=== PATIENT | male | born 1950 | race Caucasian/White ===

== ENCOUNTER 2016-07-14 12:14 | Emergency (ER) | payer OTHER ==
[2016-07-14 12:25] VITALS: BP 121/65; PULSE 72; TEMP 98; BMI 19.0
--- NOTE | 2016-07-14 13:33 | PDOC ---
History of Present Illness - General History Source: Patient, Old Records Exam Limitations: No Limitations <Benny Porterfany - Last Filed: 07/14/16 13:34> - General History Source: Patient, Old Records Exam Limitations: No Limitations - History of Present Illness Initial Comments: 07/14/16 13:39 The patient is a 65-year-old man, with a past medical history of schizophrenia ( not on any medications) and anxiety who presents to the emergency department via walk-in for further evaluation of a worsening right foot wound over the past week. No trauma/injury. Patient states that he noted increasing redness and swelling and last night he noted the foot had drained with noted yellow purulence. No pain. Patient admits placing garlic on the area, which he states made it worse. Patient expresses concern for possible infection, as he has experienced similar in the past (June of 2014; patient was noted to have an abscess in the same foot). No numbness, tingling and weakness sensations to the extremities. No recent fevers, chills, chest pain, cough, shortness of breath, abdominal pain , nausea, vomiting, diarrhea. Allergies: None Known Past Surgical History: Left hand orthopedic surgery (1976) Social History: No tobacco and recreational drug use. Occasional ETOH use. Primary Care Physician: Dr. Sallie Mcknight [phone] Psychiatrist: Dr. Joseph Covington [phone] <Rhonda Alanis - Last Filed: 07/14/16 13:42> - General Chief Complaint: Wound Infection Stated Complaint: RT FOOT INFECTION Time Seen by Provider: 07/14/16 13:11 Past History - Past Medical History Psychiatric Problems: Yes (SCIZOPHRENIA) Suicide Attempt (Hx): No - Surgical History Orthopedic Surgery: Yes (LEFT HAND 1976) - Psycho/Social/Smoking Cessation Hx Anxiety: Yes Suicidal Ideation: No Smoking Status: No Smoking History: Never smoked Have you smoked in the past 12 months: No Number of Cigarettes Smoked Daily: 0 Information on smoking cessation initiated: No Hx Alcohol Use: Yes ([facility]) Drug/Substance Use Hx: No Substance Use Type: None Hx Substance Use Treatment: No <Jaja Porter - Last Filed: 07/14/16 13:34> <Rhonda Alanis - Last Filed: 07/14/16 13:42> - Past Medical History Allergies/Adverse Reactions: Allergies Allergy/AdvReac Type Severity Reaction Status Date / Time No Known Allergies Allergy Verified 07/14/16 12:25 Home Medications: Ambulatory Orders No Home Medications 0 dose .ROUTE UTDICT 03/13/13 Cephalexin Monohydrate [Keflex -] 500 mg PO BID #14 capsule 06/29/14 Cephalexin [Keflex] 500 mg PO QID #30 capsule 07/14/16 Review of Systems - Review of Systems Able to Perform ROS?: Yes Comments:: 07/14/16 13:40 CONSTITUTIONAL: Absent: fever, no chills, no fatigue EYES: Absent: visual changes ENT: Absent: ear pain, no sore throat CARDIOVASCULAR: Absent: chest pain, no palpitations RESPIRATORY: Absent: cough, no SOB GI: Absent: abdominal pain, no nausea, no vomiting, no constipation, no diarrhea GENITOURINARY: Absent: dysuria, no frequency, no hematuria MUSCULOSKELETAL: Absent: back pain, no arthralgia, no myalgia SKIN: Present: Right foot wound. Absent: rash NEURO: Absent: headache <Rhonda Alanis - Last Filed: 07/14/16 13:42> *Physical Exam - Vital Signs Last Vital Signs Temp Pulse Resp BP Pulse Ox 98 F 72 18 121/65 100 07/14/16 12:20 07/14/16 12:20 07/14/16 12:20 07/14/16 12:20 07/14/16 12:20 <Jaja Porter - Last Filed: 07/14/16 13:34> - Vital Signs Last Vital Signs Temp Pulse Resp BP Pulse Ox 98 F 72 18 121/65 100 07/14/16 12:20 07/14/16 12:20 07/14/16 12:20 07/14/16 12:20 07/14/16 12:20 - Physical Exam Comments: 07/14/16 13:40 GENERAL: Well-appearing, well-nourished. No apparent distress. HEENT: Normocephalic, atraumatic. PERRL, EOM intact. CARDIOVASCULAR: Normal S1, S2. Regular rate and rhythm. PULMONARY: Clear to auscultation bilaterally. ABDOMEN: Soft, non-distended, non-tender. EXTREMITIES: Normal ROM in all four extremities. No gross deformities. SKIN: Over the arch of the Right foot, there is an intact lesion that is 3 centimeters by 3 centimeters that is unable to express purulence. There is also a 4 centimeter by 4 centimeter surrounding area of erythema that blanches and is very well circumscribed. Warm, dry. No rash NEUROLOGICAL: No focal neurological deficits. <Rhonda Alanis - Last Filed: 07/14/16 13:42> Medical Decision Making - Medical Decision Making 07/14/16 13:34 65-year-old male with no reported past medical history presents the emergency department with what appears to be a sebaceous cyst and a local skin reaction secondary to garlic placed on his foot; however cannot rule out an underlying cellulitis. Plan: 1. Bacitracin dressing placed 2. Will discharge on Keflex 3. Follow-up with podiatry 4. Return to the ED if symptoms persist, worsen, or new symptoms arise. <Jaja Porter - Last Filed: 07/14/16 13:34> *DC/Admit/Observation/Transfer - Discharge Dispostion Admit: No - Attestations Physician Attestion: 07/14/16 13:36 I, Dr. Jaja Porter, attest that the scribes documentation that appears above has been prepared under my direction and personally reviewed by me in its entirety. I confirmed that the note above accurately reflects all work, treatment, procedures, and medical decision-making performed by me. <Jaja Porter - Last Filed: 07/14/16 13:34> - Attestations Scribe Attestion: 07/14/16 13:40 Documentation prepared by Rhonda Alanis, acting as medical sales associate for Jaja Porter MD. <Rhonda Alanis - Last Filed: 07/14/16 13:42> Diagnosis at time of Disposition: Cellulitis of right foot - Discharge Dispostion Disposition: HOME Condition at time of disposition: Stable - Prescriptions Prescriptions: Cephalexin [Keflex] 500 mg PO QID #30 capsule - Referrals Referrals: Sallie Mcknight [Primary Care Provider] -
== END 2016-07-14 14:35 | disposition home or self-care (01) ==
LOC: JER 12:14
DX: L03.115 Cellulitis of right lower limb (principal); L72.3 Sebaceous cyst
CPT/HCPCS: 99283-25

== ENCOUNTER 2016-09-07 20:07 | Emergency (ER) | payer OTHER ==
[2016-09-07 20:19] VITALS: BMI 19.0
--- NOTE | 2016-09-07 22:13 | PDOC ---
History of Present Illness - General Chief Complaint: Pain Stated Complaint: FOOT PAIN/NUMBNESS Time Seen by Provider: 09/07/16 21:04 History Source: Patient - History of Present Illness Occurred: reports: other Lower Extremity Pain Location: right: 1st toe, 2nd toe, 3rd toe Past History - Past Medical History Allergies/Adverse Reactions: Allergies Allergy/AdvReac Type Severity Reaction Status Date / Time No Known Allergies Allergy Verified 09/07/16 20:18 Home Medications: Ambulatory Orders No Home Medications 0 dose .ROUTE UTDICT 03/13/13 Psychiatric Problems: Yes (SCIZOPHRENIA) Suicide Attempt (Hx): No - Surgical History Orthopedic Surgery: Yes (LEFT HAND 1977) - Psycho/Social/Smoking Cessation Hx Anxiety: Yes Suicidal Ideation: No Smoking Status: No Smoking History: Never smoked Have you smoked in the past 12 months: No Number of Cigarettes Smoked Daily: 0 Hx Alcohol Use: Yes (OCC) Drug/Substance Use Hx: No Substance Use Type: None Hx Substance Use Treatment: No Review of Systems - Review of Systems Constitutional: No: Chills, Fever Integumentary: No: Erythema *Physical Exam - Vital Signs Last Vital Signs Temp Pulse Resp BP Pulse Ox 97.7 F 77 18 108/72 99 09/07/16 20:16 09/07/16 20:16 09/07/16 20:16 09/07/16 20:16 09/07/16 20:16 - Physical Exam General Appearance: Yes: Appropriately Dressed. No: Apparent Distress HEENT: positive: Normal Voice Neck: positive: Supple Respiratory/Chest: negative: Respiratory Distress Extremity: positive: Normal Inspection, Other (pedal pulses intact, no erythema or swelling). negative: Tender Integumentary: positive: Dry, Warm Neurologic: positive: Fully Oriented, Alert, Normal Mood/Affect Medical Decision Making - Medical Decision Making 09/07/16 22:13 65 yo male, h/o schizophrenia, p/w pain to multiple toes on R foot. Patient states pain has been present for 6 months and intermittent. No skin changes, discharge, fever or chills. No trauma. Unclear why patient presented tonight as he admits that pain has not worsened. Is able to bear weight. Patient states he has not follow-up with his PMD because of his work schedule. Patient well-appearing and stable with no findings on exam to explain symptoms. DC with podiatry follow-up *DC/Admit/Observation/Transfer Diagnosis at time of Disposition: Chronic foot pain Qualifiers: Laterality: right Qualified Code(s): M79.671 - Pain in right foot - Discharge Dispostion Disposition: HOME Condition at time of disposition: Good - Referrals Referrals: Sallie Mcknight [Primary Care Provider] - Harry Mendoza MD [Staff Physician] - - Patient Instructions Additional Instructions: Take tylenol or motrin for pain and follow with podiatry
[2016-09-07 22:30] VITALS: BP 110/74; PULSE 72; TEMP 97.8
== END 2016-09-07 22:35 | disposition home or self-care (01) ==
LOC: JER 20:07
DX: M79.671 Pain in right foot (principal); F20.9 Schizophrenia, unspecified
CPT/HCPCS: 99282-25

== ENCOUNTER 2016-10-13 13:14 | Emergency (ER) | payer OTHER ==
[2016-10-13 13:20] VITALS: BP 121/69; PULSE 72; TEMP 97.7; BMI 19.2
--- NOTE | 2016-10-13 13:30 | PDOC ---
History of Present Illness - General Chief Complaint: Burn Stated Complaint: RT FOOT BURN Time Seen by Provider: 10/13/16 13:23 History Source: Patient Exam Limitations: No Limitations - History of Present Illness Initial Comments: CHIEF COMPLAINT: 65 y/o afebrile male c/o bleach burn to top of right foot. HISTORY OF PRESENT ILLNESS: The patient states he put a small amount of bleach in a bucket of water and stuck his right foot in it last night in an attempt to treat his athlete's foot. The patient states he now has a burn to the top of his right foot and wants to know if it's ok. He states his pain is only 1/10. He denies any decreased sensation or open wounds in the affected area. Vital signs on arrival are within normal limits. REVIEW OF SYSTEMS: GENERAL/CONSTITUTIONAL: No fever/chills. No weakness. No weight change. HEAD, EYES, EARS, NOSE AND THROAT: No change in vision. No ear pain or discharge. No sore throat. MUSCULOSKELETAL: No joint or muscle swelling or pain. No neck or back pain. SKIN: +burn to top of right foot. NEUROLOGIC: No headache, vertigo, loss of consciousness, or loss of sensation. PHYSICAL EXAM: VITAL_SIGNS: within normal limits GENERAL_APPEARANCE: alert, cooperative, no obvious discomfort. The patient is ambulatory with normal gait. MENTAL_STATUS: speech clear, oriented X 3, responds appropriately to questions. NEURO: motor intact and sensory intact in injured extremity. EXTREMITIES: 2+ dorsalis pedis pulse injured extremity. 5cm x 3cm flat, erythematous, macular region of dorsal surface of right foot that is not TTP but with full sensation. No open wounds on affected foot. No edema to affected wound. SKIN: warm, dry, good color. Past History - Past Medical History Allergies/Adverse Reactions: Allergies Allergy/AdvReac Type Severity Reaction Status Date / Time No Known Allergies Allergy Verified 10/13/16 13:20 Home Medications: Ambulatory Orders No Home Medications 0 dose .ROUTE UTDICT 03/13/13 Psychiatric Problems: Yes (SCIZOPHRENIA) Suicide Attempt (Hx): No - Surgical History Orthopedic Surgery: Yes (LEFT HAND 1977) - Psycho/Social/Smoking Cessation Hx Anxiety: No Suicidal Ideation: No Smoking Status: No Smoking History: Never smoked Have you smoked in the past 12 months: No Number of Cigarettes Smoked Daily: 0 Hx Alcohol Use: Yes (SOCIAL) Drug/Substance Use Hx: No Substance Use Type: None Hx Substance Use Treatment: No *Physical Exam - Vital Signs Last Vital Signs Temp Pulse Resp BP Pulse Ox 97.7 F 72 20 121/69 100 10/13/16 13:16 10/13/16 13:16 10/13/16 13:16 10/13/16 13:16 10/13/16 13:16 Medical Decision Making - Medical Decision Making A/P: 65 y/o male with very mild bleach burn to dorsal surface of right foot. Suggested cold compresses to the area to ease pain if needed and OTC tylenol or motrin for pain. Suggested he f/u with his doctor in 1 week and return to the ER with any worsening or concerning symptoms. Strongly encouraged him to avoid treating medical issues with bleach. The patient verbalizes understanding of all instructions, has no further questions and is awaiting discharge. *DC/Admit/Observation/Transfer Diagnosis at time of Disposition: Contact dermatitis, Burn - Discharge Dispostion Disposition: HOME Condition at time of disposition: Good - Referrals Referrals: Nick Mcknight MD [Primary Care Provider] - - Patient Instructions Printed Discharge Instructions: How to Take Care of a Burn Additional Instructions: Discharge Instructions: -Apply cold compresses to affected area if painful -You can take over the counter tylenol or motrin for pain -Follow up with your doctor this week -Return to the ER with any worsening or concerning symptoms
== END 2016-10-13 13:53 | disposition home or self-care (01) ==
LOC: JERFT 13:14
DX: T54.3X1A Toxic effect of corrosive alkalis and alkali-like substances, accidental (unintentional), initial encounter (principal); T25.421A Corrosion of unspecified degree of right foot, initial encounter; Y93.E8 Activity, other personal hygiene; Y92.038 Other place in apartment as the place of occurrence of the external cause
CPT/HCPCS: 99281-25

== ENCOUNTER 2018-03-05 12:22 | Emergency (ER) | payer OTHER ==
[2018-03-05 12:26] VITALS: BP 115/72; PULSE 84; TEMP 98.3; BMI 18.3
[2018-03-05] MEDS ORDERED: DIPHTH,PERTUSS(ACELL),TET 0.5 ML DISP.SYRIN IM ONE (13:01)
--- NOTE | 2018-03-05 13:08 | PDOC ---
History of Present Illness - General Chief Complaint: Injury Stated Complaint: WOUND Time Seen by Provider: 03/05/18 12:29 History Source: Patient Exam Limitations: No Limitations - History of Present Illness Initial Comments: 03/05/18 13:01 67 yr male with injury to right third toe last night stubbed it on furniture. pt noticed a small amount of bleeding cleaned it and wrapped it with bandaid. Pt noticed today bruising to the toe. tetanus UTD. Occurred: reports: yesterday Severity: Yes: mild Lower Extremity Pain Location: right: 3rd toe Method of Injury: Yes: direct blow Past History - Past Medical History Allergies/Adverse Reactions: Allergies Allergy/AdvReac Type Severity Reaction Status Date / Time No Known Allergies Allergy Verified 03/05/18 12:23 Home Medications: Ambulatory Orders No Home Medications 0 dose .ROUTE UTDICT 03/13/13 COPD: No DVT: No Psychiatric Problems: Yes (SCIZOPHRENIA) - Surgical History Orthopedic Surgery: Yes (LEFT HAND 1977) - Suicide/Smoking/Psychosocial Hx Smoking Status: No Smoking History: Never smoked Have you smoked in the past 12 months: No Number of Cigarettes Smoked Daily: 0 Information on smoking cessation initiated: No Hx Alcohol Use: Yes (SOCIAL) Drug/Substance Use Hx: No Substance Use Type: None Hx Substance Use Treatment: No Review of Systems - Review of Systems Able to Perform ROS?: Yes Is the patient limited Faroese proficient: No Musculoskeletal: Yes: Symptoms Reported Integumentary: Yes: Symptoms Reported *Physical Exam - Vital Signs Last Vital Signs Temp Pulse Resp BP Pulse Ox 98.3 F 84 18 115/72 100 03/05/18 12:24 03/05/18 12:24 03/05/18 12:24 03/05/18 12:24 03/05/18 12:24 - Physical Exam General Appearance: Yes: Nourished, Appropriately Dressed HEENT: positive: EOMI, SAURABH Neck: positive: Supple Musculoskeletal: positive: Normal Inspection Extremity: positive: Normal Capillary Refill, Other (right third toe with ecyhmosis , no swelling nv intact). negative: Tender Integumentary: positive: Dry, Warm, Ecchymosis, Other (skin intact ) Neurologic: positive: Fully Oriented, Alert, Normal Mood/Affect, Normal Response , Motor Strength 5/5 Procedures - Laceration/Wound Repair Right Toe 3rd digit Progress: 03/05/18 13:37 toe cleaned with peroxide and betadine , skin intact no evidence of open areas bandaged with leana tape ED Treatment Course - RADIOLOGY Radiology Studies Ordered: Category Date Time Status TOE(S) RIGHT [RAD] Stat Radiology 03/05/18 13:01 Ordered Medical Decision Making - Medical Decision Making 03/05/18 13:08 cc: toe injury xray to r/o fracture update tetanus negative toe fracture toe has been leana taped nv intact 03/08/18 09:24 *DC/Admit/Observation/Transfer Diagnosis at time of Disposition: Contusion, toe Qualifiers: Encounter type: initial encounter Toe: lesser toe Damage to nail status: without damage Laterality: right Qualified Code(s): S90.121A - Contusion of right lesser toe(s) without damage to nail, initial encounter - Discharge Dispostion Disposition: HOME Condition at time of disposition: Good - Referrals Referrals: Ray Byrne MD [Staff Physician] - - Patient Instructions Additional Instructions: the xray shows no fracture , is normal follow with the entry level software engineer next week apply an ice pack over a sock over the toe for 20 minutes every 3-4hrs you can clean with regular soap and water take ibuprofen for pain as needed over the counter (advil, motrin or ibuprofen) Return if worse - Post Discharge Activity
== END 2018-03-05 13:43 | disposition home or self-care (01) ==
LOC: JERFT 12:22
PROC: 3E0234Z Introduction of Serum, Toxoid and Vaccine into Muscle, Percutaneous Approach (ICD-10-PCS; principal; 2018-03-05)
PROC: 3E0234Z Introduction of Serum, Toxoid and Vaccine into Muscle, Percutaneous Approach (ICD-10-PCS; 2018-03-05)
DX: S90.121A Contusion of right lesser toe(s) without damage to nail, initial encounter (principal); W22.03XA Walked into furniture, initial encounter; Y93.89 Activity, other specified; Y92.038 Other place in apartment as the place of occurrence of the external cause; Y99.8 Other external cause status; F20.9 Schizophrenia, unspecified
CPT/HCPCS: 73660-TC-FY; 90715; 99281-25

== ENCOUNTER 2020-04-26 11:22 | Emergency (ER) | payer OTHER ==
[2020-04-26 11:44] VITALS: BP 115/62; PULSE 55; TEMP 97.5; BMI 20.3
== END 2020-04-26 12:44 | disposition home or self-care (01) ==
LOC: JERFT 11:22
DX: L02.31 Cutaneous abscess of buttock (principal)
CPT/HCPCS: 99282-25

== ENCOUNTER 2020-05-28 19:36 | Emergency (ER) | payer OTHER ==
[2020-05-28 19:46] VITALS: TEMP 97.2; BMI 23.7
[2020-05-28] MEDS ORDERED: OXYMETAZOLINE 0.05% NASAL SOLUTION 15 ML BOTTLE NS ONE (20:41)
[2020-05-28 21:53] LABS: BASO % 0.5 % (0-2.0); EOS % 0.3 % (0-4.5); HEMATOCRIT 36.3 % (35.4-49); HEMOGLOBIN 12.1 GM/dL (11.7-16.9); LYMPH % 13.3 % (8-40); MCH 30.8 pg (25.7-33.7); MCHC 33.3 g/dl (32.0-35.9); MEAN CELL VOLUME 92.5 fl (80-96); MEAN PLT VOLUME 7.6 fl (7.5-11.1); MONO % 8.7 % (3.8-10.2); NEUT % 77.2 % (42.8-82.8); PLATELET COUNT 190 K/MM3 (134-434); RBC 3.92 M/mm3 (4.00-5.60); RDW 13.7 % (11.9-15.9); WHITE BLOOD COUNT 7.8 K/mm3 (4.0-10.0)
[2020-05-28] MEDS ORDERED: TRANEXAMIC ACID 1000 MG/10 ML VIAL IVPUSH ONE (21:56)
[2020-05-28] MEDS ORDERED: TRANEXAMIC ACID 1000 MG/10 ML VIAL ONE (21:59)
[2020-05-28 22:01] LABS: INR 1.11 (0.83-1.09); POTASSIUM 4.1 mmol/L (3.5-5.1); PROTHROMBIN TIME (PATIENT) 13.4 SEC (9.7-13.0)
[2020-05-28 22:03] LABS: ACTIVATED PTT 34.4 SECONDS (25.2-36.5); CALCIUM 8.7 mg/dL (8.5-10.1)
[2020-05-28 22:04] LABS: ALBUMIN 3.9 g/dl (3.4-5.0); BLOOD UREA NITROGEN 22.3 mg/dL (7-18)
[2020-05-28 22:07] LABS: CREATININE 0.8 mg/dL (0.55-1.3)
[2020-05-28 22:08] LABS: TOT PROT 6.8 g/dl (6.4-8.2)
[2020-05-28 22:38] LABS: BILIRUBIN,TOTAL 0.4 mg/dL (0.2-1)
[2020-05-28 22:44] VITALS: BP 132/85; PULSE 72
== END 2020-05-28 22:43 | disposition home or self-care (01) ==
LOC: JER 19:36
PROC: 3E033GC Introduction of Other Therapeutic Substance into Peripheral Vein, Percutaneous Approach (ICD-10-PCS; principal; 2020-05-28)
DX: R04.0 Epistaxis (principal)
CPT/HCPCS: 36415; 80053; 85025; 85610; 85730; 99284-25

== ENCOUNTER 2020-09-11 18:53 | Emergency (ER) | payer OTHER ==
[2020-09-11 19:01] VITALS: BP 116/72; PULSE 59; TEMP 98; BMI 18.7
[2020-09-11] MEDS ORDERED: DIPHTH,PERTUSS(ACELL),TET 0.5 ML DISP.SYRIN IM ONE ×2 (20:23→20:26)
[2020-09-11] MEDS ORDERED: ACETAMINOPHEN 325 MG TABLET (FP) ONE (20:41)
[2020-09-11] MEDS ORDERED: ACETAMINOPHEN 500 MG TABLET (FP) PO ONE (20:41)
== END 2020-09-11 21:28 | disposition left against medical advice (07) ==
LOC: JER 18:53
PROC: 3E0234Z Introduction of Serum, Toxoid and Vaccine into Muscle, Percutaneous Approach (ICD-10-PCS; principal; 2020-09-11)
DX: R55 Syncope and collapse (principal); S00.81XA Abrasion of other part of head, initial encounter; W19.XXXA Unspecified fall, initial encounter
CPT/HCPCS: 70450-TC; 70486-TC; 72125-TC; 90715; 99285-25

== ENCOUNTER 2021-06-04 15:50 | Emergency (ER) | payer OTHER ==
[2021-06-04 16:21] VITALS: BP 113/78; PULSE 68; TEMP 97.6; BMI 19.2
== END 2021-06-04 17:43 | disposition home or self-care (01) ==
LOC: JERFT 15:50
DX: R04.0 Epistaxis (principal)
CPT/HCPCS: 99281-25

== ENCOUNTER 2021-09-20 12:35 | Emergency (ER) | payer OTHER ==
[2021-09-20 12:38] VITALS: BP 100/67; PULSE 87; TEMP 98; BMI 17.9
[2021-09-21 11:08] LABS: SARS-CoV-2 NAA Not Detected (Not Detected)
== END 2021-09-20 14:25 | disposition home or self-care (01) ==
LOC: JER 12:35
DX: J06.9 Acute upper respiratory infection, unspecified (principal); J09.X2 Influenza due to identified novel influenza A virus with other respiratory manifestations
CPT/HCPCS: 87804; 99283-25; C9803-CS; U0003; U0005

== ENCOUNTER 2021-11-19 16:29 | Emergency (ER) | payer OTHER ==
[2021-11-19 17:26] VITALS: BP 99/49; PULSE 60; TEMP 98; BMI 18.7
[2021-11-19] MEDS ORDERED: ACETAMINOPHEN 500 MG TABLET (FP) PO ONE (18:43)
[2021-11-19] MEDS ORDERED: ACETAMINOPHEN 500 MG TABLET (FP) ONE (18:54)
== END 2021-11-19 19:10 | disposition home or self-care (01) ==
LOC: JERFT 16:29
DX: M79.674 Pain in right toe(s) (principal)
CPT/HCPCS: 73660-TC-FY; 99283-25

== ENCOUNTER 2022-01-05 14:07 | Emergency (ER) | payer OTHER ==
[2022-01-05 14:26] VITALS: BP 91/49; PULSE 75; RESP 19; TEMP 99.1; BMI 18.3
== END 2022-01-05 16:51 | disposition home or self-care (01) ==
LOC: JER 14:07
DX: B34.9 Viral infection, unspecified (principal)
CPT/HCPCS: 0241U-QW; 87651; 99283-25

== ENCOUNTER 2022-01-12 10:48 | Emergency (ER) | payer OTHER ==
[2022-01-12 11:11] VITALS: BP 102/67; PULSE 75; RESP 16; TEMP 98.7; BMI 17.8
== END 2022-01-12 12:25 | disposition home or self-care (01) ==
LOC: JER 10:48
DX: U07.1 COVID-19 (principal)
CPT/HCPCS: 71046-TC-FY; 99283-25

== ENCOUNTER 2022-09-03 16:41 | Emergency (ER) | payer OTHER ==
[2022-09-03 16:56] VITALS: BP 117/62; PULSE 61; RESP 18; TEMP 97.9; BMI 18.7
[2022-09-03] MEDS ORDERED: IBUPROFEN 400 MG TABLET (FP) PO ONE ×2 (18:09→18:28)
== END 2022-09-03 19:11 | disposition home or self-care (01) ==
LOC: JER 16:41 → JERFT 16:41
DX: M79.605 Pain in left leg (principal)
CPT/HCPCS: 73590-TC-LT-FY; 99283-25

== ENCOUNTER 2022-12-06 22:04 | Emergency (ER) | payer OTHER ==
[2022-12-06 22:15] VITALS: BP 97/59; PULSE 55; RESP 18; TEMP 97.8; BMI 18.1
== END 2022-12-06 22:55 | disposition home or self-care (01) ==
LOC: JER 22:04
PROC: 0HQFXZZ Repair Right Hand Skin, External Approach (ICD-10-PCS; principal; 2022-12-06)
DX: S61.216A Laceration without foreign body of right little finger without damage to nail, initial encounter (principal); W23.0XXA Caught, crushed, jammed, or pinched between moving objects, initial encounter
CPT/HCPCS: 12001-25; 99283-25

== ENCOUNTER 2022-12-07 16:34 | Emergency (ER) | payer OTHER ==
[2022-12-07 16:58] VITALS: BP 105/62; PULSE 63; RESP 18; TEMP 98.6; BMI 18.3
== END 2022-12-07 18:10 | disposition home or self-care (01) ==
LOC: JERFT 16:34
DX: S61.210A Laceration without foreign body of right index finger without damage to nail, initial encounter (principal); X58.XXXA Exposure to other specified factors, initial encounter; Y93.9 Activity, unspecified; Y92.9 Unspecified place or not applicable
CPT/HCPCS: 99282-25

== ENCOUNTER 2023-02-04 13:50 | Emergency (ER) | payer OTHER ==
[2023-02-04 14:10] VITALS: BP 100/59; PULSE 70; RESP 18; TEMP 98; BMI 17.2
[2023-02-04 16:25] LABS: PH,URINE 7.5 (5.0-8.0); URINE APPEARANCE CLEAR; URINE BILIRUBIN 1+ (NEGATIVE); URINE COLOR DK YELLOW; URINE GLUCOSE (UA) NEGATIVE (NEGATIVE); URINE KETONE TRACE (NEGATIVE); URINE LEUK ESTERASE NEGATIVE (NEGATIVE); URINE NITRITE NEGATIVE (NEGATIVE); URINE PROTEIN NEGATIVE (NEGATIVE)
[2023-02-04 16:26] LABS: BASO % 0.5 % (0-2.0); EOS % 0.1 % (0-4.5); HEMATOCRIT 40.6 % (35.4-49); HEMOGLOBIN 13.8 GM/dL (11.7-16.9); MCH 30.1 pg (25.7-33.7); MCHC 33.9 g/dl (32.0-35.9); MEAN CELL VOLUME 88.7 fl (80-96); MONO % 9.4 % (3.8-10.2); PLATELET COUNT 225 10^3/uL (134-434); RBC 4.58 M/mm3 (4.00-5.60); RDW 14.3 % (11.9-15.9); WHITE BLOOD COUNT 5.4 K/mm3 (4.0-10.0)
[2023-02-04 16:43] LABS: POTASSIUM 4.2 mmol/L (3.5-5.1)
[2023-02-04 16:45] LABS: CALCIUM 8.5 mg/dL (8.5-10.1)
[2023-02-04 16:46] LABS: BLOOD UREA NITROGEN 15.2 mg/dL (7-18); MAGNESIUM 2.6 mg/dL (1.8-2.4)
[2023-02-04 16:51] LABS: BILIRUBIN,TOTAL 0.8 mg/dL (0.2-1); TOT PROT 6.9 g/dl (6.4-8.2)
== END 2023-02-04 18:00 | disposition home or self-care (01) ==
LOC: JER 13:50
DX: R53.83 Other fatigue (principal); G47.00 Insomnia, unspecified; Z20.822 Contact with and (suspected) exposure to COVID-19
CPT/HCPCS: 0241U-QW; 36415; 71045-TC-FY; 80053; 81003; 83735; 84443; 84484; 85025; 87086; 93005; 93010; 99283-25

== ENCOUNTER 2024-06-18 14:59 | Emergency (ER) | payer OTHER ==
[2024-06-18 15:08] VITALS: BP 116/51; PULSE 76; RESP 18; TEMP 97.2; BMI 17.8
== END 2024-06-18 16:46 | disposition home or self-care (01) ==
LOC: JER 14:59
DX: M72.2 Plantar fascial fibromatosis (principal)
CPT/HCPCS: 73630-TC-RT-FY; 99283-25

== ENCOUNTER 2024-08-05 17:13 | Emergency (ER) | payer OTHER ==
[2024-08-05 17:18] VITALS: BP 97/57; PULSE 65; RESP 18; TEMP 98.3; BMI 19.5
[2024-08-05] MEDS ORDERED: ACETAMINOPHEN 500 MG TABLET (FP) ONE (18:17)
[2024-08-05] MEDS: ACETAMINOPHEN 500 MG TABLET (FP) PO ONE (18:19)
== END 2024-08-05 20:06 | disposition home or self-care (01) ==
LOC: JERFT 17:13
DX: S63.502A Unspecified sprain of left wrist, initial encounter (principal); W22.8XXA Striking against or struck by other objects, initial encounter; Y92.811 Bus as the place of occurrence of the external cause
CPT/HCPCS: 73090-TC-LT-FY; 73110-TC-LT-FY; 73130-TC-LT-FY; 99283-25

== ENCOUNTER 2024-08-21 15:47 | Emergency (ER) | payer OTHER ==
[2024-08-21 15:53] VITALS: BP 108/63; PULSE 67; RESP 16; TEMP 98.2; BMI 19.0
== END 2024-08-21 18:25 | disposition home or self-care (01) ==
LOC: JERFT 15:47
DX: S93.602A Unspecified sprain of left foot, initial encounter (principal); X50.1XXA Overexertion from prolonged static or awkward postures, initial encounter
CPT/HCPCS: 73630-TC-LT; 99283-25

== ENCOUNTER 2024-12-07 15:57 | Observation (INO) | payer OTHER ==
[2024-12-07 16:13] VITALS: BMI 19.6
[2024-12-07 17:55] LABS: ABSOLUTE IMMATURE GRANULOCYTES 0.01 x10^3/uL (0.0-0.031); BASOPHILS # 0.02 x10^3/uL (0.01-0.08); EOSINOPHIL % 0.4 % (0.8-7.0); EOSINOPHILS # 0.02 x10^3/uL (0.04-0.54); MCHC 32.0 g/dl (32.3-36.5); MEAN CELL VOLUME 91.8 fl (79.0-92.2); MEAN PLT VOLUME 9.9 fl (9.4-12.4); MONOCYTE # 0.64 x10^3/uL (0.30-0.82); MONOCYTE % 11.3 % (5.3-12.2); RDW 13.4 % (12.2-16.6)
[2024-12-07 18:04] LABS: INR 1.17 (0.83-1.09); PROTHROMBIN TIME (PATIENT) 12.9 SEC (9.7-13.0)
[2024-12-07 18:06] LABS: ACTIVATED PTT 32.8 SECONDS (25.2-36.5)
[2024-12-07 18:18] LABS: CO2 24.0 mmol/L (21-32); GLUCOSE,RANDOM 104.0 mg/dL (74-106)
[2024-12-07 18:21] LABS: CREATININE 1.1 mg/dL (0.55-1.3); SGOT/AST 22.0 U/L (15-37); SGPT/ALT 25.0 U/L (13-61)
[2024-12-07 18:23] LABS: TOT PROT 6.3 g/dl (6.4-8.2)
[2024-12-07 18:24] LABS: ALK PHOS 74.0 U/L (45-117)
[2024-12-07 18:26] LABS: N-TERMINAL BNP 150.6 pg/ml (5-125)
[2024-12-07 18:33] LABS: URINE APPEARANCE CLEAR; URINE BILIRUBIN NEGATIVE (NEGATIVE); URINE COLOR YELLOW; URINE GLUCOSE (UA) NEGATIVE (NEGATIVE); URINE KETONE NEGATIVE (NEGATIVE); URINE LEUK ESTERASE NEGATIVE (NEGATIVE); URINE NITRITE NEGATIVE (NEGATIVE); URINE PROTEIN NEGATIVE (NEGATIVE); URINE UROBILINOGEN 0.2 mg/dL (0.2-1.0)
[2024-12-07] MEDS ORDERED: GABAPENTIN 100 MG CAPSULE ONE (19:17)
[2024-12-07] MEDS: GABAPENTIN 100 MG CAPSULE PO ONE (19:19)
[2024-12-07] MEDS: LACTATED RINGERS SOLUTION 1000 ML INFUS.BAG IV ONE (19:21)
[2024-12-07 20:04] LABS: HCV DIAGNOSTIC IN-HOUSE W/RFLX NON-REACTIVE (NONREACTIVE); HIV INTERPRETATION NEGATIVE (NEGATIVE)
[2024-12-07] MEDS: SODIUM CHLORIDE 1,000 ML IV SCH (23:53)
[2024-12-08] MEDS: SODIUM CHLORIDE NASAL SPRAY 44 ML BOTTLE NS PRN (02:07)
[2024-12-08] MEDS: GABAPENTIN 100 MG CAPSULE PO ONE (02:35)
[2024-12-08] MEDS: MELATONIN 5 MG TABLETS PO ONE (02:37)
[2024-12-08 11:26] VITALS: RESP 18
[2024-12-08 19:38] VITALS: BP 107/67; PULSE 58; TEMP 97.7
== END 2024-12-08 20:24 | disposition home or self-care (01) ==
LOC: JER 15:57 → JERBED 19:04 → J4S 12-08 00:09
PROVIDERS: ADMIT Internal Medicine; ATTEND Internal Medicine
DX: R00.1 Bradycardia, unspecified (principal); R07.9 Chest pain, unspecified; I95.9 Hypotension, unspecified; F20.9 Schizophrenia, unspecified; G47.00 Insomnia, unspecified
CPT/HCPCS: 36415; 70450-TC; 71045-TC-FY; 80053; 81003; 83735; 83880; 84484; 85025; 85610; 85730; 86803; 86850; 86900; 86901; 87389; 87637-QW; 93005; 93010; 93306-TC; 99285-25; G0378